=== PATIENT | male | born 1995 | race American Indian/Alaskan Native ===

== ENCOUNTER 2017-12-30 10:28 | Emergency (ER) | payer SELFPAY ==
[2017-12-30 10:49] VITALS: BP 143/97
[2017-12-30] MEDS ORDERED: MOTRIN PO ONE (11:15)
--- NOTE | 2017-12-30 11:20 | Emergency Department Report ---
HPI - General Chief Complaint: Extremity Injury, Lower Time Seen by Provider: 12/30/17 11:07 - HPI HPI: Room 34 The patient is a 22-year-old male presenting with chief complaint of right ankle pain. The patient states he was playing basketball 3 days ago when he hyper-inverted his right ankle. The patient states he heard a pop. Patient states has went home the swelling and pain increased making him unable to ambulate. The patient states he was eventually able to ambulate but he still has pain. Patient gets his pain a score of 7/10 Location: Right ankle Duration: 3 days Quality: Pain Severity: 7/10 Modifying factors: [see above] Context: [see above] Mode of transportation: The patient drove himself to the emergency department and there are no visitors present ED Past Medical Hx - Past Medical History Previous Medical History?: No - Surgical History Past Surgical History?: No - Family History Family history: no significant - Social History Smoking Status: Never Smoker Substance Use Type: None (denies illicit drug use), Alcohol (occasional) - Medications Home Medications: Home Medications Medication Instructions Recorded Confirmed Last Taken Type HYDROcodone/APAP 5-325 [[place] 1 - 2 each PO Q6HR PRN #10 tablet 12/30/17 Unknown Rx 5/325] Ibuprofen [Motrin 800 MG tab] 800 mg PO Q8HR PRN #20 tablet 12/30/17 Unknown Rx ED Review of Systems ROS: Stated complaint: RT ANKLE PAIN Other details as noted in HPI Constitutional: no symptoms reported Respiratory: no symptoms reported Endocrine: no symptoms reported Musculoskeletal: joint swelling, arthralgia, myalgia Physical Exam - Physical Exam Vital Signs: Vital Signs 12/30/17 10:43 Temperature 98.4 F Pulse Rate 53 L Respiratory 16 Rate Blood Pressure 143/97 O2 Sat by Pulse 98 Oximetry Physical Exam: GENERAL: The patient is well-developed well-nourished male sitting on stretcher not appearing to be in acute distress. [] HEENT: Normocephalic. Atraumatic. Extraocular motions are intact. Patient has moist mucous membranes. NECK: Supple. Trachea midline CHEST/LUNGS: There is no respiratory distress noted. HEART/CARDIOVASCULAR: Regular. There is no tachycardia. 2+ right DP SKIN: There is no rash. There is no edema. There is no diaphoresis. NEURO: The patient is awake, alert, and oriented. The patient is cooperative. The patient has normal speech MUSCULOSKELETAL: There is tenderness to palpation at the right lateral malleolus only. There is no other tenderness in the right ankle or foot. ED Course Vital Signs 12/30/17 10:43 Temperature 98.4 F Pulse Rate 53 L Respiratory 16 Rate Blood Pressure 143/97 O2 Sat by Pulse 98 Oximetry ED Medical Decision Making - Radiology Data Radiology results: image reviewed (right ankle x-ray) interpreted by me: Right ankle x-ray-no acute fracture Critical care attestation.: If time is entered above; I have spent that time in minutes in the direct care of this critically ill patient, excluding procedure time. ED Disposition Clinical Impression: Acute right ankle pain, Right ankle sprain Disposition: TO HOME OR SELFCARE Is pt being admited?: No Does the pt Need Aspirin: No Condition: Stable Instructions: Ankle Sprain (ED) Additional Instructions: Return to the emergency department immediately should you develop worsening symptoms, fever, inability to tolerate food or liquid or any other concerns. Prescriptions: HYDROcodone/APAP 5-325 [[place] 5/325] 1 - 2 each PO Q6HR PRN #10 tablet PRN Reason: Pain Ibuprofen [Motrin 800 MG tab] 800 mg PO Q8HR PRN #20 tablet PRN Reason: Pain, Moderate (4-6) Referrals: REENA MENENDEZ MD [Staff Physician] - 3-5 Days (Dr. Menendez is an orthopedic surgeon. Please follow up with him for further evaluation) Time of Disposition: 11:21
--- NOTE | 2017-12-30 11:37 | XRay Report ---
RIGHT ANKLE, 3 views: History: right ankle pain. Findings: Mild soft tissue swelling is identified. No acute osseous abnormality or joint pathology is identified. The fifth metatarsal base is intact. Impression: Soft tissue swelling. No acute osseous injury.
== END 2017-12-30 11:40 | disposition home or self-care (01) ==
LOC: EDBD → ED 10:28
DX: S93.401A Sprain of unspecified ligament of right ankle, initial encounter (principal); X50.1XXA Overexertion from prolonged static or awkward postures, initial encounter; Y93.67 Activity, basketball; Y99.8 Other external cause status; Y92.89 Other specified places as the place of occurrence of the external cause

== ENCOUNTER 2018-10-04 11:10 | Emergency (ER) | payer SELFPAY ==
[2018-10-04 11:42] VITALS: BP 146/94
--- NOTE | 2018-10-04 11:47 | Emergency Department Report ---
Blank Doc - Documentation Documentation: This is a 22-year-old male that presents with sore throat with n/v x2 days. This initial assessment/diagnostic orders/clinical plan/treatment(s) is/are subject to change based on patient's health status, clinical progression and re- assessment by fellow clinical providers in the ED. Further treatment and workup at subsequent clinical providers discretion. Patient/guardians urged not to elope from the ED as their condition may be serious if not clinically assessed and managed. Initial orders include: 1- Patient sent to [facility] for further evaluation and treatment 2- strep swab
[2018-10-04] MEDS ORDERED: ZOFRAN ODT PO ONE (13:07)
--- NOTE | 2018-10-04 13:10 | Emergency Department Report ---
HPI - General Chief Complaint: Sore Throat Time Seen by Provider: 10/04/18 11:45 - HPI HPI: 22-year-old -[place] male presents to the emergency department with complaint of a two-day history of some nausea and vomiting, sore throat and some sinus pressure. He has not taken anything for her symptoms prior to presentation. No Primary care physician. No past medical history. No recent travel or sick contacts at home. ED Past Medical Hx - Past Medical History Previous Medical History?: No - Surgical History Past Surgical History?: No - Social History Smoking Status: Unknown if ever smoked Substance Use Type: None - Medications Home Medications: Home Medications Medication Instructions Recorded Confirmed Last Taken Type HYDROcodone/APAP 5-325 [[place] 1 - 2 each PO Q6HR PRN #10 tablet 12/30/17 Unknown Rx 5/325] Ibuprofen [Motrin 800 MG tab] 800 mg PO Q8HR PRN #20 tablet 12/30/17 Unknown Rx Fluticasone [Flonase] 1 spray NS QDAY #1 bottle 10/04/18 Unknown Rx Ondansetron [Zofran ODT TAB] 4 mg PO Q8H PRN #12 tab.rapdis 10/04/18 Unknown Rx ED Review of Systems ROS: Stated complaint: VOMIT/HEADACHE/SORE THROAT Other details as noted in HPI Comment: All other systems reviewed and negative Constitutional: denies: chills, fever Eyes: denies: eye pain, vision change ENT: throat pain. denies: ear pain Respiratory: denies: shortness of breath, wheezing Cardiovascular: denies: chest pain, palpitations Gastrointestinal: nausea, vomiting. denies: abdominal pain Genitourinary: denies: dysuria, discharge Musculoskeletal: denies: back pain, arthralgia Skin: denies: rash, lesions Neurological: denies: weakness, numbness Physical Exam - Physical Exam Vital Signs: Vital Signs 10/04/18 11:40 Temperature 98.2 F Pulse Rate 64 Respiratory 18 Rate Blood Pressure 146/94 O2 Sat by Pulse 99 Oximetry Physical Exam: GENERAL: The patient is well-developed well-nourished. HENT: Normocephalic. Atraumatic. Patient has moist mucous membranes. Oropharynx is clear without tonsillar acuity, erythema or exudates. He has boggy nasal mucosa bilaterally. EYES: Extraocular motions are intact. Pupils equal reactive to light bilaterally. NECK: Supple. Trachea is midline. CHEST/LUNGS: Clear to auscultation. There is no respiratory distress noted. HEART/CARDIOVASCULAR: Regular. There is no tachycardia. There is no murmur. ABDOMEN: There is no abdominal distention. SKIN: Skin is warm and dry. NEURO: The patient is awake, alert, and oriented. The patient is cooperative. The patient has no focal neurologic deficits. The patient has normal speech. MUSCULOSKELETAL: There is no tenderness or deformity. There is no evidence of acute injury. ED Course Vital Signs 10/04/18 11:40 Temperature 98.2 F Pulse Rate 64 Respiratory 18 Rate Blood Pressure 146/94 O2 Sat by Pulse 99 Oximetry ED Medical Decision Making - Medical Decision Making Patient complains of a 2 day history of some sore throat, sinus pressure, and some nausea and vomiting. Vital signs stable throughout his ED course. Rapid strep test was negative. On physical exam, the posterior pharynx is not impressive. He does have some boggy nasal mucosa. There has been no further nausea and vomiting in the emergency department. He appears safe for discharge home and has been given a prescription for Flonase nasal spray and Zofran ODT. He has been given referrals for primary care. He will return to the emergency Department with any worsening of his symptoms or any acute distress. - Differential Diagnosis strep pharyngitis, viral pharyngitis, posterior nasal drip, sinusitis Critical Care Time: No Critical care attestation.: If time is entered above; I have spent that time in minutes in the direct care of this critically ill patient, excluding procedure time. ED Disposition Clinical Impression: Sinus pressure Pharyngitis Qualifiers: Pharyngitis/tonsillitis etiology: unspecified etiology Qualified Code(s): J02.9 - Acute pharyngitis, unspecified Nausea and vomiting Qualifiers: Vomiting type: unspecified Vomiting Intractability: non-intractable Qualified Code(s): R11.2 - Nausea with vomiting, unspecified Disposition: DC-01 TO HOME OR SELFCARE Is pt being admited?: No Condition: Stable Instructions: Pharyngitis (ED), Acute Nausea and Vomiting (ED), Viral Syndrome (ED) Additional Instructions: Please follow up with a primary care physician in the next few days. Return to the emergency Department with any worsening of your symptoms or any acute distress. Prescriptions: Fluticasone [Flonase] 1 spray NS QDAY #1 bottle Ondansetron [Zofran ODT TAB] 4 mg PO Q8H PRN #12 tab.rapdis PRN Reason: Nausea Referrals: AUSTIN NEWBERRY MD [Staff Physician] - 3-5 Days [facility] [Outside] - 3-5 Days Forms: Work/School Release Form(ED) Time of Disposition: 13:10
== END 2018-10-04 13:21 | disposition home or self-care (01) ==
LOC: ED 11:10
DX: J02.9 Acute pharyngitis, unspecified (principal); R11.2 Nausea with vomiting, unspecified; Z79.1 Long term (current) use of non-steroidal anti-inflammatories (NSAID); Z79.899 Other long term (current) drug therapy
CPT/HCPCS: 87116; 87430; 99283; Q0162